=== PATIENT | male | born 1960 | race Caucasian/White ===

== ENCOUNTER 2017-03-01 08:31 | Day surgery (SDC) | payer OTHER ==
[2017-02-28 09:03] VITALS: BMI 33.0
[~2017-03-01 08:31] MED LIST: LACTATED RINGERS 1,000 ML IV SCH; LIDOCAINE 1% 20 ML VIAL (10MG/ML) FOR IV START INTRADERMA PRN
[2017-03-01 09:21] VITALS: TEMP 98.1
[2017-03-01] MEDS ORDERED: LACTATED RINGERS 1,000 ML IV ONE ×2 (09:21)
[2017-03-01] MEDS ORDERED: LIDOCAINE 1% INJ 10MG/ML (20 ML MDV) ONE (09:57)
[2017-03-01] MEDS ORDERED: PROPOFOL 10 MG/ML 20 ML VIAL IV ONE (09:57)
[2017-03-01 10:24] VITALS: RESP 16
--- NOTE | 2017-03-01 10:30 | P.PCN ---
Date of Procedure: 03/01/17 Procedure(s) Performed: BRIEF HISTORY: Patient is a 56-year-old pleasant white male, scheduled for an elective colonoscopy as a part of evaluation prior history of colon polyps. His last colonoscopy was done on 3 years ago to have tubular adenoma. PROCEDURE PERFORMED: Colonoscopy. PREOPERATIVE DIAGNOSIS: History of colon polyps. IV sedation per Anesthesia. PROCEDURE: After informed consent was obtained, the patient, was brought into the endoscopy unit. IV sedation was administered by Anesthesia under continuous monitoring. Digital rectal examination was normal. Initially the Olympus CF- 160 flexible video colonoscope was then inserted in the rectum, gradually advanced into the cecum without any difficulty. Careful examination was performed as the scope was gradually being withdrawn. Ileocecal valve and the appendiceal orifice were visualized and appeared normal. Prep was excellent. Mucosa of the cecum, ascending colon, transverse colon, descending colon, sigmoid colon, and rectum appeared normal. Retroflexion was performed in the rectum and no lesions were seen. The patient tolerated the procedure well. IMPRESSION: Normal-appearing colon from rectum to cecum with no evidence of colorectal neoplasia. RECOMMENDATIONS: Findings of this examination were discussed with the patient as well as his family. He was advised to have a repeat screening surveillance colonoscopy in 5 years because of the prior history of colon polyps.
[2017-03-01 10:55] VITALS: BP 137/84; PULSE 57
== END 2017-03-01 11:11 | disposition home or self-care (01) ==
LOC: ORWHC2ENDO 08:31
PROVIDERS: ATTEND Internal Medicine Gastroenterology
DX: Z12.11 Encounter for screening for malignant neoplasm of colon (principal); Z86.010 Personal history of colon polyps; E66.01 Morbid (severe) obesity due to excess calories; Z68.33 Body mass index [BMI] 33.0-33.9, adult
CPT/HCPCS: J2001; J2704; G0105

== ENCOUNTER → 2020-09-29 | Outpatient (CLI) | payer BC ==
--- NOTE | 2020-09-29 12:02 | US ---
EXAMINATION TYPE: US carotid duplex BILAT DATE OF EXAM: 09/29/2020 COMPARISON: NONE CLINICAL HISTORY: I65.29 OCCLUSION OF STENOSIS. Vision problems EXAM MEASUREMENTS: RIGHT: Peak Systolic Velocity (PSV) cm/sec ----- Right CCA: 61.9 ----- Right ICA: 118.6 ----- Right ECA: 107.0 ICA/CCA ratio: 1.9 RIGHT: End Diastole cm/sec ----- Right CCA: 12.5 ----- Right ICA: 38.7 ----- Right ECA: 12.5 LEFT: Peak Systolic Velocity (PSV) cm/sec ----- Left CCA: 92.4 ----- Left ICA: 75.0 ----- Left ECA: 104.0 ICA/CCA ratio: 0.8 LEFT: End Diastole cm/sec ----- Left CCA: 22.7 ----- Left ICA: 22.7 ----- Left ECA: 11.0 VERTEBRALS (direction of flow): Right Vertebral: Antegrade Left Vertebral: Antegrade Rhythm: Normal No significant stenosis seen Grayscale images show mild to moderate eccentric plaque at bilateral carotid bulb level. Velocity marce surements and ratios appear within normal limits. IMPRESSION: Mild to moderate atherosclerotic changes without hemodynamically significant stenosis in either internal carotid artery . Criteria for Assigning % of Stenosis / Diameter reduction (Estimation based on the indirect measurements of the internal carotid artery velocities (ICA PSV). 1. Normal (no stenosis)=ICA PSV < 125 cm/s: ratio < 2.0: ICA EDV<40 cm/s. 2. Less than 50% stenosis=ICA PSV < 125 cm/s: ratio < 2.0: ICA EDV<40 cm/s. 3. 50 to 69% stenosis=ICA PSV of 125 to 230 cm/s: ration 2.0 ? 4.0: ICA EDV 40-100 cm/s. 4. Greater than 70% stenosis to near occlusion= ICA PSV > 230 cm/s: ratio > 4.0: ICA EDV > 100 cm/s. 5. Near occlusion= ICA PSV velocities may be low or undetectable: variable ratio and ICA EDV. 6. Total occlusion=unable to detect flow.
== END | disposition home or self-care (01) ==
LOC: RADUSWWP 11:29
PROVIDERS: ATTEND Family Medicine
DX: I65.23 Occlusion and stenosis of bilateral carotid arteries (principal)
CPT/HCPCS: 93880

== ENCOUNTER → 2020-09-29 | Outpatient (CLI) | payer BC ==
[2020-09-29 20:16] LABS: Basophils # (A) 0.01 X 10*3/uL (0.00-0.10); Basophils % (A) 0.2 %; Eosinophils # (A) 0.12 X 10*3/uL (0.04-0.35); HCT 44.5 % (39.6-50.0); HGB 14.8 g/dL (13.0-17.0); Lymphocytes # (A) 1.96 X 10*3/uL (0.90-5.00); Lymphocytes % (A) 31.9 %; MCH 32.4 pg (27.0-32.0); MCHC 33.3 g/dL (32.0-37.0); MCV 97.4 fL (80.0-97.0); Mean Platelet Volume 11.4 fL (9.5-12.2); Monocytes # (A) 0.53 X 10*3/uL (0.20-1.00); Monocytes % (A) 8.6 %; Neutrophils # (A) 3.52 X 10*3/uL (1.80-7.70); Neutrophils % (A) 57.1 %; Platelet Count 189 X 10*3/uL (140-440); RBC 4.57 X 10*6/uL (4.40-5.60); RDW 12.2 % (11.5-14.5); WBC 6.15 X 10*3/uL (4.50-10.00)
[2020-09-29 21:43] LABS: Erythrocyte Sedimentation Rate 11 mm/Hr (0-20)
== END | disposition home or self-care (01) ==
LOC: LABWHC1 11:32
PROVIDERS: ATTEND Ophthalmology
DX: H53.19 Other subjective visual disturbances (principal)
CPT/HCPCS: 36415; 85025; 85652; 86140

== ENCOUNTER → 2020-10-05 | Outpatient (CLI) | payer BC ==
[2020-10-05 10:01] LABS: INR 1.1 (<1.2); Partial Thromboplastin Time 24.1 sec (22.0-30.0); Prothrombin Time 11.6 sec (9.0-12.0)
[2020-10-05 10:04] LABS: ALT 18 U/L (4-49); AST 25 U/L (17-59); African American GFR (CKD) >90 (>60 ml/min/1.73 sqM); Albumin 4.6 g/dL (3.5-5.0); Alkaline Phosphatase 63 U/L (38-126); Anion Gap 10 mmol/L; Blood Urea Nitrogen 14 mg/dL (9-20); Calcium 9.6 mg/dL (8.4-10.2); Carbon Dioxide 27 mmol/L (22-30); Chloride 106 mmol/L (98-107); Glucose 94 mg/dL (74-99); Non-African American GFR(CKD) 87 (>60 ml/min/1.73 sqM); Potassium 4.9 mmol/L (3.5-5.1); Sodium 143 mmol/L (137-145); Total Protein 7.5 g/dL (6.3-8.2)
[2020-10-05 10:19] LABS: T4, Free (Free Thyroxine) 0.97 ng/dL (0.78-2.19)
[2020-10-05 13:01] LABS: Cholesterol 142 mg/dL (<200); HDL Cholesterol 33 mg/dL (40-60); LDL Cholesterol,Calculated 85 mg/dL (0-99); Triglycerides 121 mg/dL (<150)
[2020-10-05 17:06] LABS: Hemoglobin A1C 5.2 % (4.0-6.0)
--- NOTE | 2020-10-06 05:45 | MR ---
EXAMINATION TYPE: MR angio head wo con DATE OF EXAM: 10/05/2020 COMPARISON: None HISTORY: Visual disturbances, cerebral infarction. MR angiographic images were obtained of the intracerebral arterial circulation. There is arterial flow in the internal carotid arteries bilaterally. There is arterial flow in the an terior middle and posterior cerebral arteries. There is arterial flow in the vertebrobasilar artery s ystem. The posterior cerebral arteries appear to fill entirely through the basilar artery. I see no evidence of intracranial arterial stenosis. There is no sign of aneurysm or neovascularity. IMPRESSION: Negative MR angiogram of the brain
--- NOTE | 2020-10-06 06:11 | MR ---
EXAMINATION TYPE: [facility] DATE OF EXAM: 10/05/2020 COMPARISON: None HISTORY: Visual disturbances, cerebral infarction. CONTRAST: Standard multiplanar, multisequence MRI departmental protocol utilizing 10 mL intravenous Gadavist ga dolinium contrast. There are MR angiographic images of the cervical carotid and vertebral arteries. There is mild cerebral atrophy. There is no mass effect nor midline shift. There is no sign of intrac ranial hemorrhage. Diffusion images show no evidence of an acute infarct. Corpus callosum appears nor mal. Sella turcica is normal. On the FLAIR images there is some gyriform increased signal in the medial left occipital lobe. This m easures 4 x 2 cm. There appears to be some flow void on the T2 images in this area which is serpigino us. This shows mild increased signal overall on the T2 images. The MR angiographic images of the neck show arterial flow in the common internal and external carotid arteries bilaterally. There is arterial flow in both vertebral arteries. I see no evidence of aneury sm or dissection. There is no evidence of arterial stenosis. The carotid artery bifurcations appear w idely patent. The contrast images show gyriform enhancement in the medial left occipital lobe. There are serpiginou s areas. There is normal enhancement of the venous sinuses. The orbits appear intact. There is no ret ro-orbital mass. IMPRESSION: Negative MR angiogram of the neck. There are some serpiginous vessels in the medial left occipital lobe. There is serpiginous enhancemen t of these vessels on the contrast images. There is adjacent increased signal on the T2 and FLAIR lurdes ges around these vessels. The diffusion images are fairly normal and I think this relates to occipita l lobe vascular malformation with adjacent subacute old or subacute infarct. Infarct. I do not see ev idence for an acute infarct.
== END | disposition home or self-care (01) ==
LOC: RADMRIMAIN 09:09
PROVIDERS: ATTEND Psychiatry & Neurology Neurology
DX: I63.9 Cerebral infarction, unspecified (principal)
CPT/HCPCS: 84439; 80061; 80053; 84443; 85610; 85730; 83090; 83036; 70544; 70549; 70553; A9585

== ENCOUNTER → 2020-10-06 | Outpatient (CLI) | payer BC ==
--- NOTE | 2020-10-07 08:00 | ECHOF ---
Referral Reason:I63.9 Acute CVA MEASUREMENTS -------- HEIGHT: 185.4 cm WEIGHT: 111.1 kg BP: 145/75 RVIDd: 4.0 cm (< 3.3) IVSd: 1.5 cm (0.6 - 1.1) LVIDd: 4.2 cm (3.9 - 5.3) LVPWd: 1.4 cm (0.6 - 1.1) IVSs: 2.1 cm LVIDs: 2.9 cm LVPWs: 2.0 cm LA Diam: 4.0 cm (2.7 - 3.8) LAESV Index (A-L): 30.10 ml/m Ao Diam: 3.6 cm (2.0 - 3.7) AV Cusp: 2.4 cm (1.5 - 2.6) MV EXCURSION: 19.132 mm (> 18.000) MV EF SLOPE: 90 mm/s (70 - 150) EPSS: 0.7 cm MV E Ryland: 0.86 m/s MV DecT: 268 ms MV A Ryland: 0.74 m/s MV E/A Ratio: 1.17 RAP: 5.00 mmHg RVSP: 35.30 mmHg FINDINGS -------- Sinus rhythm. This was a technically adequate study. The left ventricular size is normal. There is moderate concentric left ventricular hypertrophy. O verall left ventricular systolic function is normal with, an EF between 55 - 60 %. The right ventricle is moderately enlarged. LA is midly dilated 29-33ml/m2. The right atrial size is normal. Highly mobile septum The aortic valve is trileaflet, and appears structurally normal. No aortic stenosis or regurgitation. The mitral valve is normal. Mild mitral regurgitation is present. The tricuspid valve appears structurally normal. Mild tricuspid regurgitation present. There is m ild pulmonary hypertension. The right ventricular systolic pressure, as measured by Doppler, is 35. 30mmHg. Trace/mild (physiologic) pulmonic regurgitation. The aortic root size is normal. Normal inferior vena cava with normal inspiratory collapse consistent with estimated right atrial pre ssure of 5 mmHg. The inferior vena cava is mildly dilated. There is no pericardial effusion. CONCLUSIONS -------- 1. There is moderate concentric left ventricular hypertrophy. 2. Overall left ventricular systolic function is normal with, an EF between 55 - 60 %. 3. The right ventricle is moderately enlarged. 4. LA is midly dilated 29-33ml/m2. 5. Highly mobile septum 6. The aortic valve is trileaflet, and appears structurally normal. No aortic stenosis or regurgitati on. 7. Mild mitral regurgitation is present. 8. Mild tricuspid regurgitation present. 9. There is mild pulmonary hypertension. 10. Trace/mild (physiologic) pulmonic regurgitation. 11. The inferior vena cava is mildly dilated. 12. There is no pericardial effusion. MANAGER PROGRAMMING: Sarahi Tim RDCS
== END | disposition home or self-care (01) ==
LOC: RADECHMAIN 13:53
PROVIDERS: ATTEND Psychiatry & Neurology Neurology
DX: I08.8 Other rheumatic multiple valve diseases (principal); I27.20 Pulmonary hypertension, unspecified
CPT/HCPCS: 93306

== ENCOUNTER → 2020-11-24 | Outpatient (CLI) | payer BC ==
[2020-11-24 14:32] LABS: HCT 37.5 % (39.0-53.0); HGB 13.4 gm/dL (13.0-17.5); MCHC 35.7 g/dL (31.0-37.0); Mean Platelet Volume 8.1; Platelet Count 152 k/uL (150-450); RBC 3.95 m/uL (4.30-5.90); RDW 12.3 % (11.5-15.5)
[2020-11-24 14:40] LABS: African American GFR (CKD) >90 (>60 ml/min/1.73 sqM); Anion Gap 10 mmol/L; Blood Urea Nitrogen 12 mg/dL (9-20); Carbon Dioxide 27 mmol/L (22-30); Chloride 105 mmol/L (98-107); Non-African American GFR(CKD) >90 (>60 ml/min/1.73 sqM); Potassium 4.4 mmol/L (3.5-5.1); Sodium 142 mmol/L (137-145)
== END | disposition home or self-care (01) ==
LOC: LABPAT 12:54
PROVIDERS: ATTEND Internal Medicine Interventional Cardiology
DX: Z01.812 Encounter for preprocedural laboratory examination (principal); I67.9 Cerebrovascular disease, unspecified
CPT/HCPCS: 36415; 80051; 82565; 84520; 85027

== ENCOUNTER 2020-11-28 10:49 | Day surgery (SDC) | payer BC ==
[2020-11-25 09:42] VITALS: BMI 32.7
[~2020-11-28 10:49] MED LIST changes: +ALPRAZolam 0.25 MG TAB PO PRN; +ALPRAZolam 0.5 MG TAB PO PRN; +ASPIRIN 325 MG TAB PO STA; +ATORVASTATIN 80 MG TAB PO STA; +HEPARIN SODIUM,PORCINE 10,000 UNIT in SODIUM CHLORIDE 0.9% 1,000 ML IRRIGATION PRN; +HEPARIN SODIUM,PORCINE 2,500 UNIT in SODIUM CHLORIDE 0.9% 250 ML IRRIGATION PRN; -LACTATED RINGERS 1,000 ML IV SCH; -LIDOCAINE 1% 20 ML VIAL (10MG/ML) FOR IV START INTRADERMA PRN; +NITROGLYCERIN SL TABS 0.4 MG TAB SUBLINGUAL PRN; +SODIUM CHLORIDE 0.9% 1,000 ML IV SCH; +SODIUM CHLORIDE 0.9% 1,000 ML in EMPTY BAG 1 BAG IV ONE
[2020-11-28 11:16] VITALS: RESP 18; TEMP 98.8
[2020-11-28] MEDS ORDERED: VERAPAMIL 2.5 MG/ML 2 ML AMP ONE (11:46)
[2020-11-28] MEDS ORDERED: HEPARIN SODIUM 1,000 UN/ML (10ML VL) ONE (11:47)
[2020-11-28] MEDS ORDERED: LIDOCAINE 1% INJ 10MG/ML (20 ML MDV) ONE ×2 (11:47→12:24)
[2020-11-28] MEDS ORDERED: MIDAZOLAM 2 MG/2 ML VIAL IVP ONE (12:07)
[2020-11-28] MEDS ORDERED: LIDOCAINE 1% INJ 10MG/ML (20 ML MDV) SQ ONE (12:09)
[2020-11-28] MEDS ORDERED: fentaNYL (PF) 50 MCG/ML 2 ML AMP IVP ONE (12:09)
[2020-11-28] MEDS ORDERED: fentaNYL (PF) 50 MCG/ML 2 ML AMP ONE (12:09)
[2020-11-28] MEDS ORDERED: VERAPAMIL SYRINGE (5 MG/10 ML) INTRAARTER ONE (12:12)
[2020-11-28] MEDS ORDERED: HEPARIN SODIUM 1,000 UN/ML (10ML VL) IV ONE (12:15)
[2020-11-28] MEDS ORDERED: SODIUM CHLORIDE 0.9% 1,000 ML IV SCH (12:30)
[2020-11-28] MEDS ORDERED: IOPAMIDOL-370 100ML BTL INJ ONE (12:38)
--- NOTE | 2020-11-28 14:52 | CC ---
CARDIAC CATHETERIZATION REPORT DATE OF SERVICE: 11/28/2020 PROCEDURE: Left heart catheterization and coronary angiography. PERFORMED BY: Dr. Fredi Kwok. SEDATION: Moderate conscious sedation time was 24 minutes. Patient was administered Versed oxygenation. EKG with monitored closely. CLINICAL INFORMATION: Mr. Yony Tobias is a 60-year-old gentleman with a history of recent CVA cryptogenic for which he had event monitor which was unremarkable. He also had nondescript chest tightness and pressure and a stress test revealed inferolateral reversible defect suggestive of ischemia. He was therefore advised cardiac catheterization after due discussion regarding risks, benefits, and options. He was also advised a loop recorder to be placed as well. PROCEDURE NOTE: Under local anesthesia and strict aseptic precautions, a 6-Ukrainian introducer was placed in the right radial artery. Using a JL3.5 and JR4 catheters, I performed coronary angiography and the same right catheter was used to check LV pressure but LV gram was not performed. The sheath was taken out and a TR band applied as per protocol and patient was sent to the room in stable condition. CARDIAC CATHETERIZATION FINDINGS: Left end-diastolic pressure was about 10 mmHg without any gradient across aortic valve. CORONARY ANGIOGRAPHY FINDINGS: RIGHT CORONARY ARTERY: Large dominant vessel. No significant disease. Distally bifurcates into PDA and PLV. There are minor irregularities. Left main coronary artery long disease-free vessel that bifurcates into LAD and circumflex. LEFT ANTERIOR DESCENDING CORONARY ARTERY: Good caliber vessel extends along the anterior wall, gives off septal and diagonal branches have minor irregularities. No significant disease. LEFT POSTERIOR CIRCUMFLEX CORONARY ARTERY: Technically nondominant vessel gives off a large obtuse marginal that runs laterally. This is almost in the diagonal distribution, gives off 2 large branches and supplies a sizable amount of myocardium. There are minor irregularities. No significant disease. Circumflex that runs in the AV groove is small in caliber and distribution, has no significant disease. Left ventriculogram was not performed. FINAL IMPRESSION: This patient has a right dominant system. No significant obstructive CAD. Normal filling pressures and no gradient across aortic valve. RECOMMENDATIONS: Findings were discussed with the patient and his . He will be discharged later on today. Loop recorder will be performed. He tolerated the procedure well without complication. Same medical regimen. I will see him in the office in 1 week. MMODL / IJN: [id number] /
--- NOTE | 2020-11-28 15:01 | CC ---
CARDIAC CATHETERIZATION REPORT DATE OF SERVICE: 11/28/2020 PROCEDURE: Loop recorder insertion. PERFORMED BY: Dr. Fredi Kwok. SEDATION: Moderate conscious sedation, time was 7 minutes. CLINICAL INFORMATION: Mr. Yony Tobias is a 60-year-old gentleman history of occipital stroke cryptogenic with a negative event monitor after 30 days of event monitor. There was no evidence of any significant arrhythmia and specifically no atrial fib was noted. His stroke suggests to be an embolic stroke. He was therefore advised a loop recorder. PROCEDURE NOTE: Under local anesthesia and strict aseptic precautions, a local anesthesia was administered in the left 4th intercostal space. Antibiotic was infused as per protocol. With the available tool provided in the kit, a stab incision was made in the lateral direction in the left 4th intercostal space. The loop recorder was then inserted using the provided tool. The single suture was placed to secure a good hemostasis. The device was interrogated. There was an excellent signal 0.60 millivolt signal was noted. The patient tolerated the procedure well without complication. The loop recorder was set for cryptogenic temp as per cryptogenic stroke protocol for both tachy and Jb arrhythmia and atrial fibrillation and atrial tachycardia. LOOP RECORDER DETAILS: Wet Pour Mixer Screenz model LNQ11, serial number [id number]. Loop recorder was set for a cryptogenic stroke protocol and patient will be discharged later on today. He tolerated procedure well without complications. Details were discussed with the patient and . MMODL / IJN: [id number] /
[2020-11-28 16:23] VITALS: BP 126/64; PULSE 53
== END 2020-11-28 17:09 | disposition home or self-care (01) ==
LOC: CATHCVL 10:49
PROVIDERS: ATTEND Internal Medicine Interventional Cardiology
DX: I63.9 Cerebral infarction, unspecified (principal); I10 Essential (primary) hypertension; Z79.82 Long term (current) use of aspirin; Z79.899 Other long term (current) drug therapy
CPT/HCPCS: 93458; 33285; C1894; C1764; J2250; J0690; J2001; J3010; J1644; Q9967

== ENCOUNTER → 2021-04-05 | Outpatient (CLI) | payer BC ==
--- NOTE | 2021-04-06 07:24 | MR ---
EXAMINATION TYPE: MR brain/orbits wo/w con DATE OF EXAM: 04/05/2021 COMPARISON: MRI brain October 05, 2020 HISTORY: Left occipital CVA. Follow up. TECHNIQUE: Multiplanar, multisequence images of the brain and brainstem along with orbits are all performed with out and with IV contrast, utilizing 10 mL intravenous Gadavist . FINDINGS: Diffusion weighted images demonstrate no evidence of a recent infarct or other diffusion ab normality. There is stable mild ventricular and sulcal prominence. There are a few scattered tiny foc i of T2 hyperintensity throughout the white matter bilaterally redemonstrated. Less than 10 tiny scat tered lesions are seen. There is persistent infarct involving the medial occipital lobe axial image 1 5. Prior visualized gyral enhancement has resolved consistent with progression of subacute infarct to chronic age. Midline structures redemonstrates somewhat empty sella morphology. The craniocervical junction remai ns within normal limits. Post contrast images demonstrate no abnormal enhancement on current study. The dural venous sinuses appear patent. Persistent mild mucosal thickening involving ethmoid sinuses bilaterally. Persistent mild to moderate mucosal thickening involving inferior bilateral maxillary si nuses. Globes remain symmetric and thought unremarkable. Rectus muscles are symmetric and felt within normal limits. No suspicious intraorbital mass identified bilaterally. Suprasellar cistern is maintained. O ptic chiasm is not effaced. IMPRESSION: Old infarct medial aspect left occipital lobe now present. No new suspicious or residual enhancement. Background mild age-related atrophy and mild to minimal chronic small vessel ischemic ch lars redemonstrated. Orbital findings within normal limits.
== END | disposition home or self-care (01) ==
LOC: RADMRIMAIN 15:08
PROVIDERS: ATTEND Ophthalmology
DX: I67.82 Cerebral ischemia (principal); G31.9 Degenerative disease of nervous system, unspecified
CPT/HCPCS: 70543; 70553; A9585

== ENCOUNTER → 2021-08-10 | Outpatient (CLI) | payer BC ==
[2021-08-10 15:38] LABS: ALT 29 U/L (10-49); AST 29 U/L (14-35); Chol/HDL Ratio 3.34 Ratio; LDL Cholesterol,Calculated 61.9 mg/dL (0.0-131.0)
== END | disposition home or self-care (01) ==
LOC: LABWHC1 10:22
PROVIDERS: ATTEND Family Medicine
DX: E78.5 Hyperlipidemia, unspecified (principal); E66.9 Obesity, unspecified; E55.9 Vitamin D deficiency, unspecified
CPT/HCPCS: 36415; 80061; 82306; 83036; 84450; 84460

== ENCOUNTER → 2022-02-16 | Outpatient (CLI) | payer BC ==
[2022-02-16 10:47] LABS: HCT 43.1 % (39.6-50.0); HGB 14.5 g/dL (13.0-17.0); MCH 32.5 pg (27.0-32.0); MCHC 33.6 g/dL (32.0-37.0); MCV 96.6 fL (80.0-97.0); Mean Platelet Volume 10.5 fL (9.5-12.2); NRBC Per 100 WBC 0 /100 WBCS (0.0-0.0); Platelet Count 165 X 10*3/uL (140-440); RBC 4.46 X 10*6/uL (4.40-5.60); RDW 12.2 % (11.5-14.5); WBC 7.18 X 10*3/uL (4.50-10.00)
[2022-02-16 10:56] LABS: Appearance,Urine Clear (Clear); Bilirubin,Urine Negative (Negative); Blood,Urine Negative (Negative); Color,Urine Yellow; Glucose,Urine (UA) Negative (Negative); Ketones,Urine Negative (Negative); Leukocyte Esterase,Urine Negative (Negative); Nitrite,Urine Negative (Negative); Protein,Urine Negative (Negative); Specific Gravity,Urine 1.022 (1.001-1.035); Urobilinogen,Urine <2.0 mg/dL (<2.0)
[2022-02-16 12:19] LABS: ALT 29 U/L (10-49); AST 26 U/L (14-35); African American GFR (CKD) 89.4 (60.0-200.0); Albumin 4.7 g/dL (3.8-4.9); Alkaline Phosphatase 94 U/L (41-126); BUN/Creat Ratio 15.48 Ratio (12.00-20.00); Blood Urea Nitrogen 16.1 mg/dL (9.0-27.0); Calcium 9.3 mg/dL (8.7-10.3); Carbon Dioxide 24.7 mmol/L (20.0-27.5); Chloride 105 mmol/L (96-109); Chol/HDL Ratio 3.08 Ratio; Globulin 2.5 g/dL (1.6-3.3); Glucose 98 mg/dL (70-110); LDL Cholesterol,Calculated 56.5 mg/dL (0.0-131.0); Non-African American GFR(CKD) 77.1 (60.0-200.0); Potassium 4.7 mmol/L (3.5-5.5); Sodium 142 mmol/L (135-145); Total Protein 7.2 g/dL (6.2-8.2)
== END | disposition home or self-care (01) ==
LOC: LABWHC1 07:30
PROVIDERS: ATTEND Family Medicine
DX: Z00.00 Encounter for general adult medical examination without abnormal findings (principal); E66.9 Obesity, unspecified
CPT/HCPCS: 36415; 80053; 80061; 81003; 82306; 83036; 84153; 84443; 85027

== ENCOUNTER 2022-04-13 09:39 | Day surgery (SDC) | payer BC ==
[~2022-04-13 09:39] MED LIST changes: -ALPRAZolam 0.25 MG TAB PO PRN; -ALPRAZolam 0.5 MG TAB PO PRN; -ASPIRIN 325 MG TAB PO STA; -ATORVASTATIN 80 MG TAB PO STA; -HEPARIN SODIUM,PORCINE 10,000 UNIT in SODIUM CHLORIDE 0.9% 1,000 ML IRRIGATION PRN; -HEPARIN SODIUM,PORCINE 2,500 UNIT in SODIUM CHLORIDE 0.9% 250 ML IRRIGATION PRN; +LACTATED RINGERS 1,000 ML IV SCH; +LIDOCAINE 1% (10MG/ML) FOR IV START INTRADERMA PRN; -NITROGLYCERIN SL TABS 0.4 MG TAB SUBLINGUAL PRN; +ONDANSETRON 4 MG/2 ML VIAL IVP PRN; -SODIUM CHLORIDE 0.9% 1,000 ML IV SCH; -SODIUM CHLORIDE 0.9% 1,000 ML in EMPTY BAG 1 BAG IV ONE
[2022-04-13 10:22] VITALS: TEMP 98.2
[2022-04-13] MEDS ORDERED: PROPOFOL 10 MG/ML 20 ML VIAL IV ONE (11:24)
[2022-04-13] MEDS ORDERED: LIDOCAINE 2% INJ 20 MG/ML (2 ML VIAL) ONE (11:24)
--- NOTE | 2022-04-13 11:43 | P.PCN ---
Date of Procedure: 04/13/22 Procedure(s) Performed: BRIEF HISTORY: Patient is a 62 -year-old pleasant white male scheduled for an elective colonoscopy as a part of evaluation of prior history of colon polyps. Last colonoscopy was 5 years ago. PROCEDURE PERFORMED: Colonoscopy. PREOPERATIVE DIAGNOSIS: history of colon polyps. IV sedation per Anesthesia. PROCEDURE: After informed consent was obtained, the patient, was brought into the endoscopy unit. IV sedation was administered by Anesthesia under continuous monitoring. Digital rectal examination was normal. Initially the Olympus CF-160 flexible video colonoscope was then inserted in the rectum, gradually advanced into the cecum without any difficulty. Careful examination was performed as the scope was gradually being withdrawn. Ileocecal valve and the appendiceal orifice were visualized and appeared normal. Prep was excellent. Mucosa of the cecum, ascending colon, transverse colon, descending colon, sigmoid colon, and rectum appeared normal. Retroflexion was performed in the rectum and no lesions were seen. The patient tolerated the procedure well. IMPRESSION: Normal-appearing colon from rectum to cecum no evidence of colorectal neoplasia. RECOMMENDATIONS: Findings of this examination were discussed with the patient as well as his family.he was advised to have a repeat screening colonoscopy in 10 years. 62
[2022-04-13 12:25] VITALS: BP 137/76; PULSE 54; RESP 18
== END 2022-04-13 12:45 | disposition home or self-care (01) ==
LOC: ORWHC2ENDO 09:39
PROVIDERS: ATTEND Internal Medicine Gastroenterology
DX: Z12.11 Encounter for screening for malignant neoplasm of colon (principal); I10 Essential (primary) hypertension; E78.5 Hyperlipidemia, unspecified; Z86.73 Personal history of transient ischemic attack (TIA), and cerebral infarction without residual deficits; Z86.010 Personal history of colon polyps; Z79.82 Long term (current) use of aspirin; Z79.899 Other long term (current) drug therapy; Z98.890 Other specified postprocedural states
CPT/HCPCS: 45378; J2704; J2001

== ENCOUNTER → 2023-05-09 | Outpatient (CLI) | payer BC ==
[2023-05-09 16:20] LABS: HCT 39.1 % (39.6-50.0); HGB 13.4 g/dL (13.0-17.0); MCH 32.9 pg (27.0-32.0); MCHC 34.3 g/dL (32.0-37.0); MCV 96.1 FL (80.0-97.0); Mean Platelet Volume 10.5 FL (9.5-12.2); NRBC Per 100 WBC 0 X 10*3/uL (0.00-0.01); Platelet Count 180 X 10*3/uL (140-440); RBC 4.07 X 10*6/uL (4.40-5.60); RDW 12.3 % (11.5-14.5); WBC 7.58 X 10*3/uL (4.50-10.00)
[2023-05-09 16:50] LABS: BUN/Creat Ratio 21.45 Ratio (12.00-20.00); Blood Urea Nitrogen 23.6 mg/dL (9.0-27.0); Chloride 102 mmol/L (96-109); Chol/HDL Ratio 2.88 Ratio; Glucose 102 mg/dL (70-110); LDL Cholesterol,Calculated 60.9 mg/dL (0.0-131.0); Potassium 4.9 mmol/L (3.5-5.5); Sodium 138 mmol/L (135-145)
[2023-05-09 16:51] LABS: ALT 36 U/L (10-49); AST 41 U/L (14-35); Albumin 4.7 g/dL (3.8-4.9); Albumin/Globulin Ratio 1.88 Ratio (1.60-3.17); Alkaline Phosphatase 84 U/L (41-126); Calcium 9.7 mg/dL (8.7-10.3); Carbon Dioxide 24.8 mmol/L (21.6-31.8); Globulin 2.5 g/dL (1.6-3.3); Total Bilirubin 0.8 mg/dL (0.3-1.2); Total Protein 7.2 g/dL (6.2-8.2)
[2023-05-09 18:35] LABS: PSA Annual Screen 0.389 ng/mL (0.000-4.000)
[2023-05-10 03:57] LABS: Appearance,Urine Clear (Clear); Bilirubin,Urine Negative (Negative); Blood,Urine Negative (Negative); Color,Urine Yellow (Yellow); Ketones,Urine Negative (Negative); Nitrite,Urine Negative (Negative); PH, Urine 5.5; Specific Gravity,Urine 1.019 (1.001-1.030); Urobilinogen,Urine 0.2 E.U./DL
== END | disposition home or self-care (01) ==
LOC: LABWHC1 11:20
PROVIDERS: ATTEND Family Medicine
DX: Z00.00 Encounter for general adult medical examination without abnormal findings (principal); Z12.5 Encounter for screening for malignant neoplasm of prostate; Z28.39 Other underimmunization status
CPT/HCPCS: 80061; 80053; 85027; 82306; 86787; 83036; 36415; G0103; 81003